=== PATIENT | male | born 1965 ===

== ENCOUNTER 2022-09-02 15:46 | Inpatient (IN) | payer OTHER ==
[~2022-09-02] VITALS: Ht 175.3 cm; Wt 91.2 kg
[2022-09-03] MEDS ORDERED: NORVASC2.5 M1 PO (12:03)
[2022-09-03] MEDS ORDERED: CLONAZEPAM0.5 MG PO (12:04)
[2022-09-09] MEDS ORDERED: RESTORIL30 MG (10:42)
[2022-09-09] MEDS ORDERED: QUETIAPINE FUM300 MG (10:42)
[2022-09-09] MEDS ORDERED: SERTRALINE HCL100 MG (10:43)
[2022-09-09] MEDS ORDERED: AZELASTINE137 MCG/0. (10:43)
== END 2022-09-10 14:25 | disposition home or self-care (01) | DRG 330 ==
LOC: SURG 09-08 05:06 → O/R 09-08 05:06 → SURH 09-08 07:00 → SURG 09-08 10:29
PROVIDERS: ADMIT Colon & Rectal Surgery; ATTEND Colon & Rectal Surgery
PROC: 0DBP4ZZ Excision of Rectum, Percutaneous Endoscopic Approach (ICD-10-PCS; 2022-09-08)
PROC: 0DJD8ZZ Inspection of Lower Intestinal Tract, Via Natural or Artificial Opening Endoscopic (ICD-10-PCS; 2022-09-08)
PROC: 3E0F7SF Introduction of Other Gas into Respiratory Tract, Via Natural or Artificial Opening (ICD-10-PCS; 2022-09-08)
PROC: 0DTN4ZZ Resection of Sigmoid Colon, Percutaneous Endoscopic Approach (ICD-10-PCS; principal; 2022-09-08 07:00)
DX: K57.32 Diverticulitis of large intestine without perforation or abscess without bleeding (principal); K92.1 Melena; I10 Essential (primary) hypertension